=== PATIENT | female | born 1945 | race Caucasian/White ===

== ENCOUNTER → 2024-05-11 | Outpatient (BNVA) | payer MEDICARE, MEDICAID, SELFPAY | END | disposition home or self-care (01) | PROVIDERS: PCP Physician Assistant; Referring Provider Physician Assistant; Visit Provider Urology | DX: N31.9 Neuromuscular dysfunction of bladder, unspecified (principal); E78.00 Pure hypercholesterolemia, unspecified; N18.9 Chronic kidney disease, unspecified; Z87.440 Personal history of urinary (tract) infections; R32 Unspecified urinary incontinence | CPT/HCPCS: 99212; G0463 ==